=== PATIENT | female | born 1960 | race Caucasian/White ===

== ENCOUNTER 2017-05-14 16:23 | Emergency (ER) | payer OTHER ==
[~2017-05-14] VITALS: Ht 160 cm; Wt 72.6 kg
[~2017-05-14 16:23] MED LIST: DILAUDID2 MG PO; HYDROCODONE-APA1 TA1 PO; IRON TABLETS325 MG PO; KEFLEX 500MG.500 MG PO; MACROBID100 M3 PO; RESTORIL 15MG C15 MG PO; RESTORIL15 MG PO; TYLENOL ES500 M1 PO; VICODIN1 TAB PO
--- NOTE | 2017-05-14 17:21 | Urgent Treatment Center Report ---
History of Present Issue Date/Time Seen by Provider 05/14/17 1720 Visit Reason Pt arrived:Walked Presenting Problem:PT C/O [place] X1 WEEK Location if Accident: Onset of symptoms date/time:/ or onset unknown for:MEDICAL HX UNKNOWN Have you (or family members/close friends) recently traveled outside the [place]? N If Yes, where/when: Have you had exposure to infectious disease within the past month? TB? Other? Specify: Patient state that she has had a headache on and off now for over a week state that she seen her family doctor and she thought it may be allergy related and she gave her some medication and it felt better then it came back. States that she has been taking Tylenol and it helps a little with the pain.. State that the pain will go away and then it has been often returning. State that she has had headaches like this before State that this is not the worse headache she has ever had and it is on the right side of her head and radiates down into her neck at times and makes her ear hurt, Denies vision disturbances, denies LOC or confusion ALLERGIES Coded Allergies: Penicillins (Mild, 05/14/17) Home Medications Active Scripts HYDROCODONE/ACETAMINOPHEN (Vicodin 5-300 MG Tablet) 1-2 TAB PO Q6HP PRN BREAKTHROUGH MILD PAIN #24 TAB Prov: 04/13/14 History Medical History General CAD? No Angina: No LA: No Hypertension? No Hyperlipidemia? No CHF? No DVT? No PE? No COPD? No Asthma? No Anemia? No GERD? No Gastric ulcers? No GI Bleed? No Hernia? No Thyroid Problems? No Hypothyroidism? No CVA? No Seizures? No Diabetes? No Renal Insuffiency? No UTI? No Stones? No BPH? No GB Disease: No Nephritic Syndrome? No Asplenia? No Hepatitis? No Sickle Cell Disease? No Arthritis? No Migraines? No Cataracts? No Glaucoma? No MRSA? No HIV? No TB? No Anxiety? No Depression? No Cancer? No More? No Immunization HX DT/Tetanus 1-4 Years Ago Flu 2012-[facility]N Pneumonia Never Had Surgical Hx Previous Surgery?Y Tubal Ligation RT KNEE ARTHROSCOPY RT KNEE RECONSTRUCTION MASTOID TVH c BSO BLADDER TACK COMPLETE HYSTERECTOMY Family History Family HX Diabetes No CAD No Hypertension No Hyperlipidemia No Cancer No TB No Social History Smoking Hx Smoker: Never Smoker Tobacco: No Packs/day < 1 Pack Alcohol Alcohol: No Review of Systems All Other Systems Reviewed and Negative Eyes denies blurred vision, denies decreased acuity, denies pain, denies tunnel vision, denies vision change ENT ear pain. Respiratory denies no symptoms reported, denies cough, denies shortness of breath Cardiovascular denies chest pain, denies palpitations, denies syncope Psychiatric/Neurological headache, denies numbness, denies tingling Physical Exam Vital Signs Vital Signs Date Time Temp Pulse Resp B/P Pulse O2 O2 Flow FiO2 Ox Delivery Rate 05/14 175 20 05/14 1650 98.1 83 18 143/89 98 General Appearance Patient resting in room on exam table with light dim Eye Exam - bilateral eye normal exam, bilateral eye PERRL, bilateral eye EOMI Ear, Nose, Throat hearing grossly normal, normal ENT inspection Neck supple, full range of motion Respiratory Status Yes: trachea midline, chest symmetrical, non tender chest. No: respiratory distress. Lung Sounds bilateral: normal breath sounds, lungs clear. Cardiovascular normal exam, regular rate/rhythm, no peripheral edema Neurologic alert, normal exam, oriented x 3, Describes headache as on the right side of head that has come and gone for over a week, denies blurred vision States that pain will leave after she takes tylenol but then returns Medical Decision Making LABS/Meds/Orders Pt receiving controlled substance in ED? No Results/Orders Current Medication Orders Sig/Tomas Start time Last Medication Dose Route Stop Time Status Admin Diphenhydramine HCl 50 MG ONCE ONE 05/14 1745 DC 05/14 PO 05/14 1746 1759 Ketorolac 60 MG ONCE ONE 05/14 1745 DC 05/14 Tromethamine IM 05/14 1746 1759 Metoclopramide HCl 10 MG ONCE ONE 05/14 174 DC 05/14 PO 05/14 1746 1759 Metoclopramide HCl 0 .STK-MED ONE 05/14 1739 DC PO Diphenhydramine HCl 0 .STK-MED ONE 05/14 1737 DC PO Ketorolac 0 .STK-MED ONE 05/14 1737 DC Tromethamine .ROUTE Progress [facility] Progress Notes 1 Comment Discussed with patient that she could be sent to ER for CT refuses to be transfered at this time Denies vision disturbances and denies being the worst headache or any difference from other headaches she has had [facility] Progress Notes 2 Comment Patient states that medication helped with headache and headache now gone patient being dc'd home Departure Departure Time of Disposition 1830 Disposition DC Home or Self Care(routine) Clinical Impression Primary Impression: Migraine Qualifiers: Migraine type: unspecified Status migrainosus presence: without status migrainosus Intractability: not intractable Qualified Code: G43.909 - Migraine, unspecified, not intractable, without status migrainosus Condition STABLE Referrals Mundo BHAKTA,Obi (Family): 2 Days-Call Office Follow up with Family doctor on Tuesday if headache returns or Go straight to the ER if headache worsens or becomes the worst headache of your life [facility] Patient Instructions Cluster Headache, DI for Cluster Headache, DI for Headache, Migraine -- Adult Additional Instructions If headache returns or worst headache of your life go straight to the ER or you began having numbness or tingling Follow up with family doctor on Tuesday Return to the [facility] if needed Continue to take medication prescribed by family doctor and consult with them on Tuesday if they would like you to continue taking medication Discharge Counseling Counseled pt/family regarding diagnosis, medications/RX, home care, follow up needs Prescriptions Current Visit Scripts Ibuprofen (Ibuprofen 800MG) 800 MG PO QIDP PRN pain #30 TAB at 1831
[2017-05-14] MEDS ORDERED: IBUPROFEN800 MG PO (18:31)
[2017-05-14 18:35] VITALS: BP 143/89
--- OUTSIDE RECORDS SUMMARY | 2017-05-20 15:44 | External Medical Summary Rpt | CCD ---
Demographics Preferred Language Greenlandic Marital Status Unknown Nondenominational Affiliation Unknown Race Unknown Ethnic Group Unknown Author Author , PASQUALE GIORDANO Address Unknown Phone Immunization Unable to retrieve immunization data due to connection failure with Immunization Registry. Please try again later.
--- OUTSIDE RECORDS SUMMARY | 2017-05-20 15:44 | External Medical Summary Rpt ---
Author Author PASQUALE De La Paz, [employer] Address Unknown Phone Unavailable
--- OUTSIDE RECORDS SUMMARY | 2017-05-20 15:44 | External Medical Summary Rpt | CCD ---
Author Author [employer] Address Unknown Phone Unavailable Purpose Continuity of Care Document - through 2016
--- OUTSIDE RECORDS SUMMARY | 2017-05-20 15:44 | External Medical Summary Rpt | CCD ---
Author Author [employer] Address Unknown Phone Purpose Continuity of Care Document - through 2016
--- OUTSIDE RECORDS SUMMARY | 2017-05-20 15:44 | External Medical Summary Rpt | CCD ---
Author Author PASQUALE Address Unknown Phone [email or web address] Purpose Continuity of Care Document - through 2016
--- OUTSIDE RECORDS SUMMARY | 2017-05-20 15:44 | External Medical Summary Rpt | CCD ---
Demographics Preferred Language Kinyarwanda Marital Status Unknown Rastafari Affiliation Unknown Race Unknown Ethnic Group Unknown Author Author , PASQUALE GIORDANO Address Unknown Phone Immunization Unable to retrieve immunization data due to connection failure with Immunization Registry. Please try again later.
== END 2017-05-14 18:35 | disposition home or self-care (01) ==
LOC: UTC 16:23
DX: G43.909 Migraine, unspecified, not intractable, without status migrainosus (principal); Z88.0 Allergy status to penicillin